=== PATIENT | female | born 1995 | race American Indian/Alaskan Native ===

== ENCOUNTER 2017-06-11 13:28 | Emergency (ER) | payer OTHER ==
[2017-06-11 14:06] VITALS: BP 135/83
--- NOTE | 2017-06-11 15:03 | XRay Report ---
RIGHT FINGERS, 2 VIEWS History: Injury to right middle finger. Findings: No acute osseous findings or joint pathology is appreciated. Soft tissue bandage overlies the third digit. No radiopaque foreign body is detected. Impression: Right third digit within normal limits.
--- NOTE | 2017-06-11 15:13 | Emergency Department Report ---
Upper Extremity - HPI Chief Complaint: Extremity Injury, Upper Stated Complaint: FINGER INJURY Time Seen by Provider: 06/11/17 15:13 Upper Extremity: Right Middle Finger (pain and swelling with laceration) Occurred When: Today Mechanism: Hit with Object Severity: moderate (6/10) Symptoms: Yes Pain with Movement (right middle finger), Yes Limited Range of Movement (rt middle finger), Yes Swelling (rt middle finger), Yes Laceration or Abrasion (patient with cut to right middle finger), No Deformity, No Numbness, No Weakness Other History: Patient here reports that she accidentally shut her finger in the car door today and she has a cut on her right middle finger. She reports swelling and pain with movement. Tetanus shot is not up-to-date. Pain is 6 out of 10 and throbbing pain. ED Review of Systems ROS: Stated complaint: FINGER INJURY Other details as noted in HPI Comment: All other systems reviewed and negative Constitutional: no symptoms reported Respiratory: no symptoms reported Cardiovascular: denies: chest pain, palpitations, dyspnea on exertion, edema, syncope Gastrointestinal: denies: abdominal pain, nausea, vomiting Musculoskeletal: joint swelling, arthralgia. denies: back pain Skin: other (cut to right middle finger). denies: rash Neurological: denies: headache, weakness, numbness, paresthesias, confusion, abnormal gait ED Past Medical Hx - Past Medical History Previous Medical History?: Yes Hx Hypertension: Yes - Surgical History Past Surgical History?: Yes Additional Surgical History: - Family History Family history: no significant - Social History Smoking Status: Current Every Day Smoker Substance Use Type: None - Medications Home Medications: Home Medications Medication Instructions Recorded Confirmed Last Taken Type Cephalexin [Keflex] 500 mg PO Q8HR #15 cap 06/11/17 Unknown Rx Ibuprofen [Motrin] 600 mg PO Q8H PRN #15 tablet 06/11/17 Unknown Rx Upper Extremity Exam - Exam General: Vital signs noted. No distress. Alert and acting appropriately. This is a 21-year-old female well-nourished well-developed in no acute distress. Head and Torso: No HEENT Abnormality, No Neck Tenderness, No Chest/Lungs Abnormality, No Abdominal Tenderness, No Back Tenderness Shoulder Exam: Yes Normal Range of Motion in Shoulder, No Shoulder Tenderness, No Clavicle Tenderness, No Shoulder Deformity, No AC Joint Tenderness Arm Exam: No Arm/Humerus Tenderness, No Arm Deformity Elbow: Yes Normal Range of Motion in Elbow, No Elbow Tenderness, No Elbow Deformity Forearm: No Forearm Tenderness, No Forearm Deformity, No Pain with Pronation, No Pain with Supination Wrist: Yes Normal ROM in Wrist, No Wrist Tenderness, No Wrist Deformity, No Snuffbox Tenderness, No Pain with Axial Thumb Compression Hand: Yes Digit Tenderness (right middle finger tender to palpate with swelling. ), Yes Normal ROM in Digit(s) (patient with active range of motion to all extremities including the fingers but she said it hurts when she moves her right middle finger), No Hand Tenderness, No Hand Deformity, No Digit(s) Deformity, No Tendon Dysfunction CMS Exam: Yes Broken Skin (superficial laceration noted to right middle finger that is already hemostased.), Yes Normal Distal Pulses, Yes Normal Capillary Refill, Yes Normal Distal Sensation ED Course Vital Signs 06/11/17 14:00 Temperature 98.6 F Pulse Rate 60 Respiratory 18 Rate Blood Pressure 135/83 O2 Sat by Pulse 100 Oximetry - Reevaluation(s) Reevaluation #1: 06/11/17 16:49 Patient received posterior 0.5 mL IM, 5/325 2 tablets by mouth and she voice or relief of pain. X-ray of the finger showed no fracture or dislocation but soft tissue swelling. Patient finger soaked in iodine and 2 to superficial illness of the laceration and hemostasis no need to repair laceration. Neosporin ointment placed the side and bulky dry dressing placed. 06/11/17 16:50 ED Medical Decision Making - Radiology Data Radiology results: report reviewed Xray of middle finger showed no fracture or dislocation - Medical Decision Making ED course: Sent here after injuring her right middle finger by accident with [employer]jot in car door one hour prior to emergency room visit .X-ray of right middle finger showed no acute fracture or dislocation, some possible tissue swelling seen. Patient with superficial laceration to finger that was already hemostased and wound edges are ready together therefore she did not need any suturing. Laceration soaked in iodine and normal saline and flushed with normal saline. Neosporin ointment placed a side followed by bulky dry dressing. Patient received posterior to 0.5 mL and Hammon 5/25 mg by mouth for pain. I explained to her that I'll put her on pain medication and antibiotic to prevent infection. Explained to patient that she needs to keep affected area clean and dry and to follow-up with her primary care physician in 4 days. Patient was understanding discharge instruction and treatment plan and discharged home in stable condition with prescription for Motrin and Keflex. Critical care attestation.: If time is entered above; I have spent that time in minutes in the direct care of this critically ill patient, excluding procedure time. ED Disposition Clinical Impression: Pain of right middle finger Laceration of middle finger of right hand without complication Qualifiers: Encounter type: initial encounter Qualified Code(s): S61.212A - Laceration without foreign body of right middle finger without damage to nail, initial encounter Contusion of right middle finger without damage to nail Qualifiers: Encounter type: initial encounter Qualified Code(s): S60.031A - Contusion of right middle finger without damage to nail, initial encounter Disposition: TO HOME OR SELFCARE Is pt being admited?: No Does the pt Need Aspirin: No Condition: Stable Instructions: Arthralgia (ED), Finger Laceration (ED), Contusion in Adults (ED) Additional Instructions: Please increase your fluid intake. Keep affected area clean and dry Take antibiotic as prescribed Follow up Primary care physician in 4 days Prescriptions: Cephalexin [Keflex] 500 mg PO Q8HR #15 cap Ibuprofen [Motrin] 600 mg PO Q8H PRN #15 tablet PRN Reason: Pain Referrals: Your, PCP [Other] - 06/15/17 Forms: Work/School Release Form(ED), Accompanied Note
[2017-06-11] MEDS ORDERED: NORCO 5/325 PO ONE (15:32)
[2017-06-11] MEDS ORDERED: TRIPLE ANTIBIOTIC TP ONE (15:32)
[2017-06-11] MEDS ORDERED: BOOSTRIX IM ONE (15:32)
== END 2017-06-11 17:04 | disposition home or self-care (01) ==
LOC: ED 13:28
DX: S61.212A Laceration without foreign body of right middle finger without damage to nail, initial encounter (principal); I10 Essential (primary) hypertension; S60.031A Contusion of right middle finger without damage to nail, initial encounter; F17.200 Nicotine dependence, unspecified, uncomplicated; W45.8XXA Other foreign body or object entering through skin, initial encounter; Y93.89 Activity, other specified; Y92.89 Other specified places as the place of occurrence of the external cause; Y99.8 Other external cause status; Z88.8 Allergy status to other drugs, medicaments and biological substances
CPT/HCPCS: 90471; 90715; A6250